=== PATIENT | male | born 1980 | race Caucasian/White ===

== ENCOUNTER 2016-05-16 11:31 | Emergency (ER) | payer OTHER ==
[~2016-05-16] VITALS: Ht 195.6 cm; Wt 139.0 kg
[~2016-05-16 11:31] MED LIST: AMLO-110 PO; BUPR-79 PO; FEXO1TAB49 PO; FOSI10TA6 PO; GLC/500 PO; IBUP-1050 PO; OXYC-57 PO; PRLSR20 PO; SUMA100T16 PO
[2016-05-16 11:34] VITALS: TEMP 37.1; Ht 195.6 cm; Wt 139.0 kg
[2016-05-16] MEDS ORDERED: TRVHP PO (11:55)
[2016-05-16] MEDS ORDERED: DEXAMETHASONE SOD INJ 4 MG/ML VIAL IV STA (12:03)
[2016-05-16] MEDS ORDERED: PROCHLORPERAZINE 5 MG/ML 2 ML VIAL IV STA (12:03)
[2016-05-16] MEDS ORDERED: SODIUM CHLORIDE 0.9% 1000ML 1,000 ML IV STA (12:03)
[2016-05-16] MEDS ORDERED: DiphenhydrAMINE HCL 50 MG/ML VIAL IV STA (12:03)
[2016-05-16 12:26] LABS: BASO % 0.9 %; BASO ABS # 0.07 K/uL (0-0.2); COMPLETE YES; EOS % 4.8 %; HEMATOCRIT 40.4 % (42-52); IG% 0.3 %; LYMPH % 20.8 %; LYMPH ABS # 1.55 K/uL (1.2-3.4); MEAN CELL VOLUME 87.1 fL (80-100); MEAN CORPUSCULAR HGB CONC 34.4 g/dl (32-36); MEAN PLATELET VOLUME 9.4 fL (7.4-10.4); MONO % 8.2 %; PLATELET COUNT 280 K/uL (130-400); RED BLOOD COUNT 4.64 M/uL (4.7-6.1); WHITE BLOOD COUNT 7.44 K/uL (4.8-10.8)
[2016-05-16 12:43] LABS: BUN/CREATININE RATIO 7.2 (10-20); CALCIUM 8.8 mg/dl (8.5-10.1); CREATININE 0.92 mg/dl (0.60-1.40); POTASSIUM 3.9 mmol/L (3.5-5.1)
[2016-05-16 12:46] LABS: ALB/GLOB RATIO 1.2 (0.9-2)
--- NOTE | 2016-05-16 12:47 | DIAGNOSTIC IMAGING REPORT ---
CT OF THE HEAD WITHOUT CONTRAST CLINICAL HISTORY: Worst headache of life. COMPARISON STUDY: No previous studies for comparison. CT DOSE: 884.08 mGy.cm TECHNIQUE: Helical axial images of the head were obtained without IV contrast. Automated exposure control was utilized for the study. FINDINGS: No acute intracranial hemorrhage, midline shift or mass effect is present. Ventricular system is normal. The basilar cisterns are patent. There are no extra-axial collections. Urbano-white differentiation is maintained. There are no findings to suggest acute dural sinus thrombosis or acute territorial infarct. There is minimal mucosal thickening of the sphenoid sinuses. Mastoid air cells are clear. There are no significant calvarial abnormalities. IMPRESSION: No acute intracranial findings. Electronically signed by: Dragan Mckeon M.D. 05/16/2016 12:46 PM Dictated Date/Time: 05/16/2016 12:43 PM
[2016-05-16] MEDS ORDERED: HYDROmorphone INJ 2 MG/ML SYR/VIAL IV STA (13:12)
[2016-05-16] MEDS ORDERED: OXYCODONE IR HOME PACK PO ONE (14:15)
--- NOTE | 2016-05-16 14:18 | EMERGENCY ROOM VISIT NOTE ---
History First contact with patient: 11:59 Chief Complaint: HEADACHE Stated Complaint: HEADACHE History of Present Illness The patient is a 36 year old male who presents to the Emergency Room with complaints of a headache which began 4 days ago. The patient states that he has had a gradual onset of a migraine headache over the past 4 days. The patient does have a history of migraines and states this feels similar in quality but is "the worst migraine he has had in his life." The patient took Imitrex, Tylenol, Excedrin, ibuprofen and used icy hot without relief. He states the pain is located in the right side of the head and radiates into the back of the head. He rates the discomfort a 10/10. He sees his primary care provider for his headaches. He has seen neurology, but has not seen him in several years. The patient is concerned because he recently saw a certain type of cheese was recalled for listeria, and he believes he ate that she use this week. He denies any fevers, vomiting, blurred vision, slurred speech, neck stiffness, sore throats, earaches, chest pain, shortness of breath or abdominal pain. Review of Systems A complete 10-point Review of Systems was discussed with the patient, with pertinent positives and negatives listed in the History of Present Illness. All remaining Review of Systems questions can be considered negative unless otherwise specified. Social History Smoking Status: Never Smoker Current/Historical Medications Scheduled Amlodipine (Norvasc), 5 MG PO QAM Bupropion (Wellbutrin Sr), 150 MG PO BID Emtricitabine/Temofovir (Truvada 200/300MG), 1 TAB PO DAILY Fexofenadine Hcl (Vivienne Allergy), 1 TAB PO QAM Fosinopril Sodium & Hydrochlor (Fosinopril Sodium/Hydroch), 1 TAB PO BID Ibuprofen (Advil), 400-600 MG PO PRN Metformin Hcl (Glucophage), 500 MG PO BID Omeprazole (Prilosec), 20 MG PO QAM Scheduled PRN Sumatriptan Succinate (Imitrex), 50-100 MG PO PRN PRN for UD Allergies Coded Allergies: Cat Dander (Verified Allergy, Unknown, ITCHY EYES,STUFFY, 03/02/16) NO KNOWN DRUG ALLERGIES (Verified Allergy, Unknown, NONE, 03/02/16) Peanut (Verified Allergy, Unknown, ITCHY SENSATION INSIDE CHEST, 03/02/16) Physical Exam Vital Signs Date Time Temp Pulse Resp B/P Pulse Ox O2 Delivery O2 Flow Rate FiO2 05/16/16 14:55 99 16 131/86 95 05/16/16 13:24 97 18 159/96 96 Room Air 05/16/16 11:34 37.1 117 18 178/117 99 Room Air Physical Exam VITALS: Vitals are noted on the nurse's note and reviewed by myself. Vital signs stable. GENERAL: This is a 36-year-old male, in no acute distress but appears in pain, nondiaphoretic, well-developed well-nourished. SKIN: The skin was without rashes. HEAD: Normocephalic atraumatic. EARS: External auditory canals clear, tympanic membranes pearly urbano without erythema or effusion bilaterally. No hemotympanum. EYES: Pupils equal round and reactive to light and accommodation. Conjunctivae without injection, sclerae without icterus. Extraocular movements intact. NOSE: Patent, turbinates without inflammation or discharge. No sinus tenderness. MOUTH: Mucous membranes moist. Tonsils are not enlarged. Pharynx without erythema or exudate. NECK: Supple without nuchal rigidity. No lymphadenopathy. No meningismus. HEART: Regular rate and rhythm without murmurs gallops or rubs. LUNGS: Clear to auscultation bilaterally without wheezes, rales or rhonchi. ABDOMEN: Positive bowel sounds x 4. Soft, nontender. MUSCULOSKELETAL: Full range of motion throughout all extremities. Strength 5/5 throughout. NEURO: Patient was alert and oriented to person place and time. Normal sensation to light and sharp touch. Deep tendon reflexes 2+ throughout. No focal neurological deficits. Medical Decision & Procedures ER Provider Diagnostic Interpretation: CT OF THE HEAD WITHOUT CONTRAST CLINICAL HISTORY: Worst headache of life. COMPARISON STUDY: No previous studies for comparison. CT DOSE: 884.08 mGy.cm TECHNIQUE: Helical axial images of the head were obtained without IV contrast. Automated exposure control was utilized for the study. FINDINGS: No acute intracranial hemorrhage, midline shift or mass effect is present. Ventricular system is normal. The basilar cisterns are patent. There are no extra-axial collections. Urbano-white differentiation is maintained. There are no findings to suggest acute dural sinus thrombosis or acute territorial infarct. There is minimal mucosal thickening of the sphenoid sinuses. Mastoid air cells are clear. There are no significant calvarial abnormalities. IMPRESSION: No acute intracranial findings. Laboratory Results 05/16/16 12:15 Red Blood Count 4.64, Mean Corpuscular Volume 87.1, Mean Corpuscular Hemoglobin 30.0, Mean Corpuscular Hemoglobin Concent 34.4, Mean Platelet Volume 9.4, Neutrophils (%) (Auto) 65.0, Lymphocytes (%) (Auto) 20.8, Monocytes (%) (Auto) 8.2, Eosinophils (%) (Auto) 4.8, Basophils (%) (Auto) 0.9, Neutrophils # (Auto) 4.83, Lymphocytes # (Auto) 1.55, Monocytes # (Auto) 0.61, Eosinophils # (Auto) 0.36, Basophils # (Auto) 0.07 05/16/16 12:15 Test 05/16/16 12:15 White Blood Count 7.44 K/uL (4.8-10.8) Red Blood Count 4.64 M/uL (4.7-6.1) Hemoglobin 13.9 g/dL (14.0-18.0) Hematocrit 40.4 % (42-52) Mean Corpuscular Volume 87.1 fL (80-100) Mean Corpuscular Hemoglobin 30.0 pg (25-34) Mean Corpuscular Hemoglobin Concent 34.4 g/dl (32-36) Platelet Count 280 K/uL (130-400) Mean Platelet Volume 9.4 fL (7.4-10.4) Neutrophils (%) (Auto) 65.0 % Lymphocytes (%) (Auto) 20.8 % Monocytes (%) (Auto) 8.2 % Eosinophils (%) (Auto) 4.8 % Basophils (%) (Auto) 0.9 % Neutrophils # (Auto) 4.83 K/uL (1.4-6.5) Lymphocytes # (Auto) 1.55 K/uL (1.2-3.4) Monocytes # (Auto) 0.61 K/uL (0.11-0.59) Eosinophils # (Auto) 0.36 K/uL (0-0.5) Basophils # (Auto) 0.07 K/uL (0-0.2) RDW Standard Deviation 41.5 fL (36.4-46.3) RDW Coefficient of Variation 13.1 % (11.5-14.5) Immature Granulocyte % (Auto) 0.3 % Immature Granulocyte # (Auto) 0.02 K/uL (0.00-0.02) Anion Gap 9.0 mmol/L (3-11) Est Creatinine Clear Calc Drug Dose 171.2 ml/min Estimated GFR () 123.6 Estimated GFR (Non- 106.6 BUN/Creatinine Ratio 7.2 (10-20) Calcium Level 8.8 mg/dl (8.5-10.1) Total Bilirubin 1.1 mg/dl (0.2-1) Aspartate Amino Transf (AST/SGOT) 29 U/L (15-37) Alanine Aminotransferase (ALT/SGPT) 45 U/L (12-78) Alkaline Phosphatase 95 U/L (45-117) Total Protein 8.0 gm/dl (6.4-8.2) Albumin 4.4 gm/dl (3.4-5.0) Globulin 3.6 gm/dl (2.5-4.0) Albumin/Globulin Ratio 1.2 (0.9-2) Medications Administered Medications (Trade) Dose Ordered Sig/Christiano Route Start Time Stop Time Status Last Admin Dose Admin Sodium Chloride (Nss 1000ml) 1,000 ml @ 999 mls/hr Q1H1M STAT IV 05/16/16 12:03 05/16/16 13:03 DC 05/16/16 12:14 999 MLS/HR Prochlorperazine Edisylate (Compazine Inj) 10 mg NOW STAT IV 05/16/16 12:03 05/16/16 12:06 DC 05/16/16 12:13 10 MG Diphenhydramine HCl (Benadryl Inj) 50 mg NOW STAT IV 05/16/16 12:03 05/16/16 12:06 DC 05/16/16 12:13 50 MG Dexamethasone Sodium Phosphate (Decadron Inj) 10 mg NOW STAT IV 05/16/16 12:03 05/16/16 12:06 DC 05/16/16 12:13 10 MG Hydromorphone HCl (Dilaudid Inj) 2 mg NOW STAT IV 05/16/16 13:12 05/16/16 13:13 DC 05/16/16 13:21 2 MG Oxycodone HCl (Roxicodone Immediate Rel 5MG Home Pack) 1 homepack UD ONCE PO 05/16/16 14:15 05/16/16 14:16 DC 05/16/16 14:15 1 HOMEPACK Medical Decision The differential diagnosis includes acute intracranial bleed, meningitis, encephalitis, mass or mass effect, sinusitis, infection, tumor, headache, temporal arteritis and carbon monoxide exposure, and migraine. The patient was evaluated as above. Labs were drawn and IV access was obtained. Imaging studies were performed and read by radiology as above. The patient was medicated as above. The patient was reassessed multiple times during their stay in the emergency department and remained in stable condition. The patient is a 36-year-old male who presents today complaining of in migraine headache. He does describe this as the worst headache of his life. For this reason, a CT scan was performed and showed no acute intracranial abnormalities. Labs revealed no leukocytosis, anemia or concerning electrolyte abnormalities. The patient was initially treated with a combination of Compazine, Toradol and Benadryl. The patient stated this relieved his pain only slightly. He was then given 2 mg Dilaudid IV, which did significantly reduce his pain. The patient did express concern about possible Listeria, and I explained to him while this certainly is a possibility, I feel it is very unlikely in this case. The patient is afebrile, has no meningismus on examination and no leukocytosis on laboratory testing. I feel that meningitis or encephalitis is unlikely. The patient was given a home pack of OxyIR to be used as needed for any additional pain. He was encouraged to follow-up with his primary care provider and neurologist closely week. He will return for worsening of his current condition or any new/concerning symptoms. Based on the patient's presentation, lab results, and imaging studies, I feel the patient is stable for outpatient treatment. The patient's case was reviewed with Dr. Keys, ED attending physician, who agreed with my assessment and treatment plan. Discharge instructions were reviewed with the patient. The patient verbalized understanding of my assessment and treatment plan and was discharged home in good condition. Impression Primary Impression: Headache Departure Information Dispostion Home / Self-Care Condition GOOD Referrals Toni Craven III, CRNP (PCP) Patient Instructions My [facility] Additional Instructions You have been treated in the Emergency Department for a Headache. You have received pain medicine in the emergency department which impairs your ability to operate a vehicle. It is illegal for you to drive after receiving these medicines. You have been prescribed OxyIR to be used for pain control. This is a narcotic medication. You cannot drive or consume alcohol while on this medicine. This medicine should only be used for pain that cannot be controlled with over-the- counter pain medicines. You have received pain medication in the emergency department, so please do not take this medication for 4-6 hours. For pain control, you can use the following [id number] medicines (if >12 yo): - Regular strength (325mg/tab) Tylenol (acetaminophen) 2 tabs every 4-6 hours as needed. Do not exceed 12 tablets in a 24 hour period. Avoid taking more than 4 grams (4000 mg) of Tylenol per day. This includes any other sources of acetaminophen you may take on a regular basis. - Regular strength (200 mg/tab) Advil (ibuprofen) 1-2 tabs every 4-6 hours as needed. Do not exceed a dose of 3200 mg per day. You should relax in a quiet, dark place for the rest of the day. Avoid any possible triggers including: cigarette smoke, caffeine, nicotine, chocolate, wine, beer, loud noises or music, or bright lights. You should schedule a follow-up appointment in 2-3 days with your Primary Care Provider or established Neurologist for further evaluation and treatment of your Headache. Return to the Emergency Department if your current symptoms worsen despite treatment course outlined above, or if you develop any of the following symptoms : intractable pain despite aforementioned treatment course, visual disturbances , loss of vision, unilateral weakness or facial drooping, slurring of speech, loss of coordination, or loss of consciousness. Problem Qualifiers Primary Impression: Headache Headache type: unspecified Headache chronicity pattern: acute headache Intractability: not intractable Qualified Codes: R51 - Headache
[2016-05-16 14:55] VITALS: BP 131/86; PULSE 99; O2SAT 95
== END 2016-05-16 14:57 | disposition home or self-care (01) ==
LOC: C.EDB 11:33 → C.EDC 14:57
DX: R51 Headache (principal)

== ENCOUNTER → 2016-11-30 | Outpatient (CLI) | payer OTHER ==
[~2016-11-30] VITALS: Ht 195.6 cm; Wt 136.0 kg
[~2016-11-30] MED LIST changes: -OXYC-57 PO; +TRVHP PO
[2016-11-30 14:48] VITALS: BP 133/84; PULSE 109; Ht 195.6 cm; Wt 136.0 kg
== END | disposition home or self-care (01) ==
LOC: C.NEUR 14:30
PROVIDERS: ATTEND Internal Medicine Pulmonary Disease
DX: G47.30 Sleep apnea, unspecified (principal)